=== PATIENT | male | born 1935 | race Caucasian/White ===

== ENCOUNTER 2016-07-26 10:17 | Day surgery (SDC) | payer OTHER ==
[~2016-07-26] VITALS: Ht 180.3 cm; Wt 74.0 kg
[~2016-07-26 10:17] MED LIST: ARICEPT5 MG PO; B COMPLETE1 EACH PO; CALCIUM ACETAT667 M2 PO; CARDURA8 MG PO; CARVEDILOL6.25 MG PO; DOXAZOSIN MESYLA2 MG PO; FIBER THERAPY0.52 GM PO; GLIPIZIDE5 MG PO; HYDRALAZINE HCL50 MG PO; IRON325 M1 PO; LASIX20 MG PO; LIPITOR80 MG PO; LO-DOSE ASPIRIN81 M2 PO; PRESERVISION T1 EACH PO; SUPER B-50 COM1 EACH PO; TRADJENTA5 MG PO
[2016-07-26 10:47] VITALS: BP 176/82
[2016-07-26 11:00] LABS: EOSINOPHIL (%) 4.1 % (0-5); EOSINOPHIL COUNT 0.3 K/uL (0-0.3); HEMATOCRIT 29.6 % (38.0-50.0); IMMATURE GRANULOCYTE (%) 0.3 % (0.0-0.7); INSTRUMENT ABS NEUTROPHIL CT 4.2 K/uL; LYMPHOCYTE COUNT 0.9 K/uL (1.0-2.8); MCH 33.9 PG (29.0-34.0); MCHC 31.8 G/DL (30.0-36.0); MCV 106.9 FL (86-99); MEAN PLAT.VOLUME 10.8 uM^3 (9.0-12.4); MONOCYTE COUNT 0.9 K/uL (0-0.8); NEUTROPHIL (%) 66.3 % (45-76); NEUTROPHIL COUNT 4.2 K/uL (1.8-6.4); PLATELET COUNT 153 K/uL (156-360); RED BLOOD COUNT 2.77 M/uL (4.00-5.50); WHITE BLOOD COUNT 6.3 K/uL (4.1-10.2)
[2016-07-26 11:32] LABS: ANION GAP 11 MEQ/L (2-14); CHLORIDE 112 MEQ/L (99-109); GFR ESTIMATE (CALCULATED) 11 mL/min/; GLUCOSE 97 mg/dL (70-99); POTASSIUM 4.2 MEQ/L (3.7-5.4); SAMPLE HEMOLYSIS CHECK 0; SAMPLE ICTERIC CHECK 0; SAMPLE LIPEMIA CHECK 0; SODIUM 144 MEQ/L (136-147); UREA NITROGEN (BUN) 59 mg/dL (9-23)
[2016-07-26 14:39] LABS: POINT-OF-CARE METER ID UU13113675
[2016-07-26 15:15] VITALS: BP 160/73
[2016-07-26 16:29] VITALS: BP 136/62
== END 2016-07-26 16:32 | disposition home or self-care (01) ==
LOC: SDC 10:17
PROVIDERS: Surgery
DX: I12.9 Hypertensive chronic kidney disease with stage 1 through stage 4 chronic kidney disease, or unspecified chronic kidney disease (principal); N18.9 Chronic kidney disease, unspecified; E11.22 Type 2 diabetes mellitus with diabetic chronic kidney disease; E78.5 Hyperlipidemia, unspecified; Z85.51 Personal history of malignant neoplasm of bladder; Z95.828 Presence of other vascular implants and grafts; Z79.82 Long term (current) use of aspirin; F17.200 Nicotine dependence, unspecified, uncomplicated
CPT/HCPCS: 80048; 82948; 85025; J0690; J1644; J2250; J2405; J2720; J3010